=== PATIENT | male | born 1980 | race American Indian/Alaskan Native ===

== ENCOUNTER 2020-11-20 09:48 | Emergency (ER) | payer SELFPAY ==
--- NOTE | 2020-11-20 11:37 | ER ---
Nurse's Notes [facility] [place] Name: Torrey Sykes Age: 40 yrs Sex: Male : 1980 Arrival Date: 11/20/2020 Time: 09:51 Bed 18 Private MD: Diagnosis: Essential (primary) hypertension Presentation: 11/20 10:08 Chief complaint: Patient states: Intermittent dizziness, headache and back pain that ss began a week ago. Pt reports that last night he checked his BP and it was 204/134 and this morning it was 194/118. Coronavirus screen: Client denies travel out of the [place] in the last 14 days. Ebola Screen: Patient denies exposure to infectious person. Patient denies travel to an Ebola-affected area in the 21 days before illness onset. Initial Sepsis Screen: Does the patient meet any 2 criteria? No. Patient's initial sepsis screen is negative. Does the patient have a suspected source of infection? No. Patient's initial sepsis screen is negative. Risk Assessment: Do you want to hurt yourself or someone else? Patient reports no desire to harm self or others. Onset of symptoms was November 12, 2020. 10:08 Method Of Arrival: Ambulatory ss 10:08 Acuity: YVONNE 3 ss Triage Assessment: 11:50 General: Appears in no apparent distress. Behavior is calm, cooperative. ll1 Historical: - Allergies: 10:11 No Known Allergies; ss - Home Meds: 10:11 None [Active]; ss - PMHx: 10:11 None; ss - PSHx: 10:11 None; ss - Immunization history:: Adult Immunizations up to date. - Social history:: Smoking status: Patient denies any tobacco usage or history of. Screenin:34 Abuse screen: Denies threats or abuse. Nutritional screening: No deficits noted. ll1 Tuberculosis screening: No symptoms or risk factors identified. Fall Risk None identified. Total Schilling Fall Scale indicates No Risk (0-24 pts). Assessment: 11:00 General: Appears in no apparent distress. Behavior is calm, cooperative, appropriate ll1 for age. Pain: Denies pain. Neuro: Level of Consciousness is awake, alert, obeys commands, Oriented to person, place, time, situation, Appropriate for age Wardrobe Technician are equal bilaterally Moves all extremities. Full function Gait is steady, Speech is normal, Facial symmetry appears normal, Reports dizziness, headache. Cardiovascular: Reports since high BP Heart tones S1 S2 Capillary refill < 3 seconds Clubbing of nail beds is absent Patient's skin is warm and dry. Vital Signs: 10:08 BP 145 / 101; Pulse 88; Resp 16; Temp 98.0(TE); Pulse Ox 99% on R/A; Weight 104.33 kg; Height 5 ft. 7 in. (170.18 cm); Pain 5/10; 11:34 BP 135 / 92; Pulse 85; Resp 16; Pulse Ox 98% on R/A; ll1 10:08 Body Mass Index 36.02 (104.33 kg, 170.18 cm) ED Course: 09:51 Patient arrived in ED. rg4 10:11 Triage completed. ss 10:11 Arm band placed on left wrist. 10:51 Ryan Kee NP is PHCP. pm1 10:51 Pavan Noonan MD is Attending Physician. pm1 10:51 Lico Borja RN is Primary Nurse. ll1 11:35 Patient has correct armband on for positive identification. Bed in low position. Call ll1 light in reach. Side rails up X 1. Pulse ox on. NIBP on. 11:50 No provider procedures requiring assistance completed. Patient did not have IV access ll1 during this emergency room visit. Administered Medications: No medications were administered Outcome: 11:36 Discharge ordered by . pm1 11:50 Patient left the ED. ll1 11:50 Discharged to home ambulatory. ll1 11:50 Condition: stable 11:50 Discharge instructions given to patient, Instructed on discharge instructions, follow up and referral plans. medication usage, Demonstrated understanding of instructions, follow-up care, medications, Prescriptions given X 1. Signatures: Martha Ortiz, STONEY LUA Ryan Kee NP MACHINE TOOL TECHNICIAN INSTRUCTOR pm1 Marilou Pastrana rg4 Lico Borja RN RN 1
--- NOTE | 2020-11-20 11:37 | EDPHYS ---
Physician Documentation [facility] Name: Torrey To Age: 40 yrs Sex: Male : 1980 Arrival Date: 11/20/2020 Time: 09:51 Bed 18 Private MD: JAJA Physician Pavan Noonan HPI: 11/20 11:34 This 40 yrs old Other Male presents to ER via Ambulatory with complaints of High Blood pm1 Pressure. 11:34 The patient has elevated blood pressure and discovered this at home, with a home pm1 device. Onset: The symptoms/episode began/occurred this morning. Associated signs and symptoms: Pertinent positives: headache. 11:34 Associated signs and symptoms: Pertinent positives: dizziness, back pain onset 1 week pm1 ago. Severity of symptoms: in the emergency department the blood pressure is improved. Yes many years ago and was taking atenolol at that time. The patient has not recently seen a physician. Historical: - Allergies: 10:11 No Known Allergies; ss - Home Meds: 10:11 None [Active]; ss - PMHx: 10:11 None; ss - PSHx: 10:11 None; ss - Immunization history:: Adult Immunizations up to date. - Social history:: Smoking status: Patient denies any tobacco usage or history of. ROS: 11:34 Constitutional: Negative for fever, chills, and weight loss, Cardiovascular: Negative pm1 for chest pain, palpitations, and edema, Respiratory: Negative for shortness of breath, cough, wheezing, and pleuritic chest pain, Abdomen/GI: Negative for abdominal pain, nausea, vomiting, diarrhea, and constipation. 11:34 Neuro: Positive for dizziness, headache, resolved, Negative for numbness, tingling, weakness. Exam: 11:34 Constitutional: This is a well developed, well nourished patient who is awake, alert, pm1 and in no acute distress. Head/Face: Normocephalic, atraumatic. 11:34 Back: No spinal tenderness. No costovertebral tenderness. Full range of motion. Skin: Warm, dry with normal turgor. Normal color with no rashes, no lesions, and no evidence of cellulitis. MS/ Extremity: Pulses equal, no cyanosis. Neurovascular intact. Full, normal range of motion. 11:34 Cardiovascular: Exam negative for acute changes, Rate: normal, Rhythm: regular, Pulses: no pulse deficits are appreciated, Edema: is not appreciated. 11:34 Respiratory: Exam negative for acute changes, respiratory distress, shortness of breath. 11:34 Abdomen/GI: Inspection: obese Palpation: abdomen is soft and non-tender, in all quadrants. 11:34 Neuro: Exam negative for acute changes, Orientation: is normal, Mentation: is normal, Motor: is normal, moves all fours. Vital Signs: 10:08 BP 145 / 101; Pulse 88; Resp 16; Temp 98.0(TE); Pulse Ox 99% on R/A; Weight 104.33 kg; ss Height 5 ft. 7 in. (170.18 cm); Pain 5/10; 11:34 BP 135 / 92; Pulse 85; Resp 16; Pulse Ox 98% on R/A; ll1 10:08 Body Mass Index 36.02 (104.33 kg, 170.18 cm) ss MDM: 10:58 Patient medically screened. [facility] 11:34 Refusal of service: The patient/guardian displays adequate decision making capability pm1 and despite a detailed discussion of alternatives, benefits, risks, and consequences refuses: all lab tests, all X-rays, Patient does not want any tests in the ER. he just wants a prescription for hypertension. He used to take atenolol many years ago, > 5 years. Will discharge the patient home with HCTZ. 11:34 Data reviewed: vital signs. pm1 11:34 Counseling: I had a detailed discussion with the patient and/or guardian regarding: the pm1 historical points, exam findings, and any diagnostic results supporting the discharge/admit diagnosis, the need for outpatient follow up, with PCP for continued management of HTN. 11/20 11:03 Order name: EKG; Complete Time: 11:04 pm1 11/20 11:03 Order name: IV Saline Lock; Complete Time: 11: pm1 11/20 11:03 Order name: Labs collected and sent; Complete Time: 11: pm1 11/20 11:03 Order name: O2 Per Protocol; Complete Time: 11: pm1 11/20 11:03 Order name: O2 Sat Monitoring; Complete Time: 11: pm1 Administered Medications: No medications were administered Disposition: 11/21 07:20 Co-signature as Attending Physician, Pavan Noonan MD I agree with the assessment and nena plan of care. Disposition: 11/20/20 11:36 Discharged to Home. Impression: Essential (primary) hypertension. - Condition is Stable. - Discharge Instructions: Hypertension, How to Take Your Blood Pressure, [id number], DASH Eating Plan, Managing Your Hypertension. - Prescriptions for Hydrochlorothiazide 12.5 mg Oral Tablet - take 1 tablet by ORAL route once daily; 30 tablet. - Medication Reconciliation Form, Thank You Letter, Antibiotic Education, Prescription Opioid Use form. - Follow up: Emergency Department; When: As needed; Reason: Worsening of condition. Follow up: Private Physician; When: 2 - 3 days; Reason: Recheck today's complaints, Continuance of care, Re-evaluation by your physician. - Problem is new. - Symptoms have improved. Signatures: Dispatcher [employer] EDIN Pavan Noonan MD MD cha Smirch, Shelby, RN RN ss Ryan Kee, FREIGHT HANDLER FREIGHT HANDLER pm1 Lico Borja RN RN ll1 Corrections: (The following items were deleted from the chart) 11/20 11:34 11:03 Cardiac monitoring ordered. pm1 ll1 11:34 11:03 EKG - Nurse/Tech ordered. pm1 ll1 11:41 11:04 Head Brain Wo Cont+CT.RAD.BRZ ordered. [facility] 11:42 11:04 Chest Single View+RAD.RAD.BRZ ordered. [facility] 11:43 11:34 Refusal of service: The patient/guardian displays adequate decision making pm1 capability and despite a detailed discussion of alternatives, benefits, risks, and consequences refuses: all lab tests, all X-rays, Patient does not want any tests in the ER. he just wants a prescription for hypertension. He used to take atenolol many years ago, > 5 years. Will discharge the patient home with lisinopril, pm1 11:43 11:34 Counseling: I had a detailed discussion with the patient and/or guardian pm1 regarding: the historical points, exam findings, and any diagnostic results supporting the discharge/admit diagnosis, the need for outpatient follow up, with PCP for continued management of HTN, pm1 11:50 11:36 11/20/2020 11:36 Discharged to Home. Impression: Essential (primary) ll1 hypertension. Condition is Stable. Forms are Medication Reconciliation Form, Thank You Letter, Antibiotic Education, Prescription Opioid Use. Follow up: Emergency Department; When: As needed; Reason: Worsening of condition. Follow up: Private Physician; When: 2 - 3 days; Reason: Recheck today's complaints, Continuance of care, Re-evaluation by your physician. Problem is new. Symptoms have improved. pm1
[2020-11-20 11:55] VITALS: TEMP 98
[2020-11-20 11:56] VITALS: BP 135/92; O2SAT 98
== END 2020-11-20 11:50 | disposition home or self-care (01) ==
LOC: ER 09:48
DX: I10 Essential (primary) hypertension (principal)
CPT/HCPCS: 99283